=== PATIENT | male | born 1995 | race African-American/Black ===

== ENCOUNTER 2016-10-12 16:57 | Emergency (ER) ==
[2016-10-12 17:52] VITALS: BP 147/83
--- NOTE | 2016-10-12 18:34 | PROVIDER DOCUMENTATION ---
HPI-EENT General - General Chief Complaint: Earache Stated Complaint: HEADACHE Time Seen by Provider: 10/12/16 18:11 Source: patient Allergies/Adverse Reactions: Patient Allergies Allergy/AdvReac Type Severity Reaction Status Date / Time No Known Allergies Allergy Verified 09/01/16 22:05 - History of Present Illness-EENT General Nature of Presenting Problem: This pt presents today c complaints of sinus pain and pressure to the forehead and behind his eyes X 2 days. He denies any throat pain. No n/v/d, fever, chills. No other issues or complaints. He states that a family member recently had a stroke and he wants to be evaluated. EENT Location: reports: eye (R), eye (L), ear (R), ear (L), facial Quality of Pain: reports: aching Severity: reports: mild Onset/Duration: reports: 2 days ago Timing: reports: still present Prearrival Treatment: Initiated no prearrival treatment Associated Symptoms: reports: facial pain/swelling, nasal congestion/drainage, sinus infection Similar Symptoms Previously?: No Recently seen or treated by another doctor?: No Review of Systems - Adult - REVIEW OF SYSTEMS - ADULT Constitutional: reports: no symptoms reported. denies: chills, fever Eyes: reports: see HPI. denies: discharge, dry eyes Ears, Nose, Mouth & Throat: reports: see HPI, ear pain, sinus problem, nose pain . denies: ear discharge, loose teeth, throat pain Cardiovascular: reports: no symptoms reported. denies: chest pain, edema Respiratory: reports: no symptoms reported. denies: chronic cough, cough Gastrointestinal: reports: no symptoms reported. denies: abdominal pain, hematemesis Genitourinary: reports: no symptoms reported. denies: dysuria, discharge Musculoskeletal: reports: no symptoms reported. denies: bone pain, back pain Integumentary: reports: no symptoms reported. denies: hives, hair loss Neurological: reports: headache/migraines. denies: ataxia, dizziness/vertigo Psychiatric: reports: no symptoms reported. denies: anxiety, anti-depressant use Endocrine: reports: no symptoms reported Hematologic/Lymphatic: reports: no symptoms reported Allergic/Immunologic: reports: no symptoms reported All Other Systems: Reviewed and Negative Past History - Adult - PAST MEDICAL HISTORY-ADULT Review of Records: reports: Old Records Reviewed, Nursing Assessment Review, Medications Reviewed, Social history reviewed & non-contributory. Major Childhood Illnesses: reports: denies history Cardiovascular: reports: denies history Respiratory: reports: denies history Gastrointestinal: reports: denies history Obstetrical/Gynecological: reports: denies history Genitourinary: reports: denies history Musculoskeletal: reports: denies history Neurological: reports: denies history Endocrine/Immune: reports: denies history Other Conditions: reports: denies history - PRIOR SURGERIES/PROCEDURES Surgical/Procedure History: reports: none - PRIOR HOSPITALIZATIONS Prior Hospitalizations: reports: none - IMMUNIZATION STATUS Childhood Immunizations: See Nurse Assessment Flu Vaccine: See Nurse Assessment - FAMILY HISTORY Family History: reviewed, not pertinent Physical Exam- EENT - Physical Exam EENT Initial Vital Signs Reviewed: Yes General Appearance: appears well, alert, no apparent distress Eye Exam: bilateral eye: normal inspection, PERRL, EOMI Ear Exam: bilateral ear: auricle normal, erythema Nasal Exam: sinus tenderness, other (swollen, erythematous nares). negative: dried blood, foreign body Throat Exam: normal mouth inspection, pharynx normal Neck: non-tender, full range of motion, supple, normal inspection. negative: limited range of motion, lymphadenopathy, meningismus Respiratory: chest non-tender, lungs clear, normal breath sounds, no pleuratic chest pain, no respiratory distress, no accessory muscle use. negative: respiratory distress, decreased breath sounds, accessory muscle use Cardiovascular: normal peripheral pulses, regular rate, rhythm, no edema, no gallop, no JVD, no murmur. 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 negative: facial droop, focal weakness, motor weakness, sensory deficit Psych/Mental Status: AL, normal mood/affect, normal thought content, normal thought process, oriented x 3 Progress - PLAN OF CARE/RESULTS Progress/Plan/Lab Results: Vital Signs Temp Pulse Resp BP Pulse Ox 10/12/16 17:50 97.9 F 87 20 147/83 99 No Known Allergies Allergy (Verified 09/01/16 22:05) Acetaminophen with Codeine [Tylenol with Codeine #3] 1 each PO Q4H PRN PRN #12 tablet 09/01/16 Amoxicillin 500 mg PO BID #14 tablet 09/01/16 Departure - Departure Time of Disposition Order: 18:30 DIAGNOSIS: Acute sinusitis Qualifiers: Sinusitis location: pansinusitis Recurrence: non-recurrent Qualified Code(s): J01.40 - Acute pansinusitis, unspecified Disposition: HOME 01 Certified Medical Emergency: Urgent Condition: Good Additional Instructions: Take medication as prescribed. Wait 3 days before filling antibiotics to see if symptoms resolve on their own. Follow up with your primary care provider. ED Follow Up Instructions: You have been treated by a care provider in the Emergency Department. These instructions are being provided to you so you can have an understanding of how to care for yourself upon discharge. Upon discharge from the Emergency Department, you are responsible for making arrangements for follow-up care by a physician of your choice. Take all prescribed medications as directed. Return to the Emergency Department immediately for any new or worsening symptoms. You may call the Physician Referral phone number at [phone] to obtain a list of Physicians who are taking new patients. Prescriptions: Amoxicillin [Amoxil] 500 mg PO BID #10 capsule Guaifenesin/D-Methorphan Hb/PE [Deconex Dmx Tablet] 1 each PO TID #30 tablet Attestation - Physician/ Mid-level Attestation Patient care was provided by Mid-level provider (PRODUCT MARKETING DIRECTOR/PA):: Yes Mid-level provider:: Torrey Malin Mid-level documentation review:: The Mid-level provider documentation, treatment plan and medical decision making was reviewed by the physician who agrees with all treatment and medical decision making by the MLP.
== END 2016-10-12 18:40 | disposition home or self-care (01) ==
LOC: ED 16:57
DX: J01.40 Acute pansinusitis, unspecified (principal); H92.09 Otalgia, unspecified ear; R51 Headache; J34.89 Other specified disorders of nose and nasal sinuses; R09.81 Nasal congestion; R22.0 Localized swelling, mass and lump, head
CPT/HCPCS: 99282